=== PATIENT | female | born 1995 | race Caucasian/White ===

== ENCOUNTER 2025-07-12 19:25 | Emergency (ER) | payer MEDICARE, SELFPAY ==
--- NOTE | ~2025-07-12 | CT_ITS ---
CT abdomen pelvis wo con INDICATION:periumbilical abdominal pain . COMPARISON: None. TECHNIQUE: Axial 2.5 mm images of the abdomen were obtained without IV or oral contrast. Diagnostic sensitivity is limited due to lack of IV contrast. FINDINGS: The lung bases are clear. The liver parenchyma is unremarkable. No intrahepatic mass or ductal dilatation is evident. The patient has had a cholecystectomy. The pancreas and spleen are normal in appearance. The adrenal glands are symmetric in size. The kidneys are unremarkable. No intrarenal stones are noted. There is no hydronephrosis. Evaluation of the stomach and bowel loops are limited due to lack of oral contrast. There are no bowel obstruction or acute appendicitis. The bladder and rectum are normal. No free intraperitoneal fluid or air is evident. There is no significant retroperitoneal lymphadenopathy. The aorta, visceral vessels and renal arteries demonstrate normal caliber. The lower thoracic and lumbar vertebrae are in normal alignment. IMPRESSION: No acute abnormality is noted in the abdomen and pelvis. All CT scans at this facility are performed using low dose modulation techniques as appropriate to perform exam including the following: automated exposure control; use of iterative reconstruction technique; adjustment of the mA and/or kV according to patient size (this includes techniques or standardized protocols for targeted exams where dose is matched to indication/reason for exam). Reviewed, dictated and finalized at location S[facility] IMPRESSION: No acute abnormality is noted in the abdomen and pelvis. All CT scans at this facility are performed using low dose modulation techniqu es as appropriate to perform exam including the following: automated exposure c ontrol; use of iterative reconstruction technique; adjustment of the mA and/or kV according to patient size (this includes techniques or standardized protocol s for targeted exams where dose is matched to indication/reason for exam).
[2025-07-12 19:30] VITALS: BP 143/72; PULSE 86; RESP 16; TEMP 36.4; O2SAT 94
--- NOTE | 2025-07-12 19:43 | ECG_ITS ---
Test Date: 2025-07-12 19:48:48 Measurements Intervals [place] Rate: 85 P: 23 MN: 136 QRS: 46 QRSD: 88 T: 31 QT: 344 QTc: 410 Interpretive Statements SINUS RHYTHM NORMAL ECG No previous ECG available for comparison Electronically Signed On 07-12-2025 20:54:18 GENERAL CLAIMS AGENT by Miguel Velasquez D.O.
--- NOTE | 2025-07-12 19:43 | PC.NURSE ---
Pt. states she is not currently having cp, but has had intermittent CP since Friday.
[2025-07-12 21:49] VITALS: PULSE 79; RESP 21; O2SAT 100
[2025-07-12 22:07] VITALS: PULSE 73; RESP 14; O2SAT 100
[2025-07-12 22:15] VITALS: PULSE 76; RESP 21
[2025-07-12] MEDS: ONDANSETRON INJ 4 MG/2 ML VIAL IV PUSH (22:35)
[2025-07-12 22:39] LABS: Hematocrit 39.5 % (37.0-47.0); Hemoglobin 13.4 g/dL (12.0-15.0); Immature Granulocyte Percent A 0.3 % (0-0.5); Lymphocytes Absolute Auto 4.07 K/mm3 (0.9-3.2); Mean Corpuscular HGB Conc 33.9 g/dl (32-36); Mean Corpuscular Hemoglobin 30.8 pg (26-34); Mean Corpuscular Volume 90.8 fl (80-100); Nucleated Red Blood Cells Absolute Auto 0.000 K/mm3 (0.0-0.012); Nucleated Red Blood Cells Perc 0.0 % (0.0-0.2); Platelet Count Result 268 k/mm3 (150-375); Red Blood Count 4.35 M/mm3 (4.2-5.4); White Blood Count 11.8 K/mm3 (4.5-10.0)
[2025-07-12 22:54] LABS: Alanine Aminotransferase 22 U/L (6-35); Albumin Level 4.3 g/dL (3.5-5.1); Alkaline Phosphatase 77 U/L (38-126); Anion Gap 9 mmol/L (4-12); Aspartate Amino Transferase 29 U/L (14-36); Bilirubin,Total 0.5 mg/dL (0.2-1.3); Blood Urea Nitrogen 18 mg/dL (7-17); Calcium 9.2 mg/dL (8.4-10.2); Carbon Dioxide 17 mmol/L (22-30); Chloride 112 mmol/L (98-107); Estimated CRCL calculation 119 ml/min; Estimated Glomerular Filt Rate > 60; Glucose 89 mg/dL (65-110); Lipase 188 U/L (23-300); Potassium 4.6 mmol/L (3.4-5.0); Sodium 138 mmol/L (137-145); Total Protein 7.6 g/dL (6.3-8.2)
--- NOTE | 2025-07-12 22:54 | ED.ABDPAIN ---
HPI - Abdominal Pain General Chief Complaint: Abdominal Pain Stated Complaint: ovarian pain, abd pain, freq syncopial episodes Time Seen by Provider: 07/12/25 21:16 History of Present Illness HPI narrative: 30-year-old female presenting with concerns for periumbilical abdominal pain ongoing since November. Other symptoms include intermittent vomiting for the last 2 months reporting she cannot keep anything down. She states the abdominal pain has gotten worse within the last week. Last bowel movement was today and was normal. Denies diarrhea, fevers/chills, chest pain/shortness of breath. She reports she is currently on antibiotics for a UTI. Related Data Allergies Allergy/AdvReac Type Severity Reaction Status Date / Time fentanyl Allergy Severe Anaphylaxis Verified 07/12/25 19:42 oxycodone Allergy Severe Anaphylaxis Verified 07/12/25 19:42 Gadolinium-Containing Allergy Intermediate Dyspnea / Verified 07/12/25 19:42 Contrast Medi SOB Iodinated Contrast Media Allergy Intermediate Dyspnea / Verified 07/12/25 19:42 SOB ondansetron (From Zofran) Allergy Intermediate Hives Verified 07/12/25 19:42 Sulfa (Sulfonamide Allergy Unknown Unknown Verified 07/12/25 19:42 Antibiotics) ciprofloxacin (From Cipro) AdvReac Intermediate Confusion Verified 07/12/25 19:42 gabapentin AdvReac Intermediate Chest Pain Verified 07/12/25 19:42 metoclopramide (From Reglan) AdvReac Intermediate Agitated Verified 07/12/25 19:42 prochlorperazine (From AdvReac Intermediate Agitated Verified 07/12/25 19:42 Compazine) topiramate (From Topamax) AdvReac Intermediate Chest Pain Verified 07/12/25 19:42 droperidol AdvReac Mild Drowsy Verified 07/12/25 19:42 Review of Systems Review of Systems: All systems reviewed & are unremarkable except as noted in HPI and below Exam Narrative: GENERAL: No acute distress. HEAD: Normocephalic, atraumatic. EYES: PERRLA and EOMI. ENT: Nares clear, no rhinorrhea or epistaxis. Mucous membranes moist. Oropharynx without tonsillar hypertrophy exudate or other lesions. Bilateral TMs pearly darnell non-bulging NECK: Supple. No adenopathy or masses. No carotid bruits or JVD CHEST: Clear to auscultation. No respiratory distress. No wheezes rales or rhonchi HEART: Regular rate and rhythm. No murmur heard. Normal peripheral pulses. ABDOMEN: Soft, nondistended, normal active bowel sounds. Mild periumbilical TTP. EXTREMITIES: Normal range of motion. No edema. SKIN: Warm, dry, no rash. NEURO: No focal deficits. Alert and oriented x3. PSYCH: Normal mood and affect Course Vital Signs Vital signs: Vital Signs Temperature 97.6 F 07/12/25 19:30 Pulse Rate 86 07/12/25 19:30 Respiratory Rate 16 07/12/25 19:30 Blood Pressure 143/72 H 07/12/25 19:30 Pulse Oximetry 94 07/12/25 19:30 Oxygen Delivery Room Air 07/12/25 19:30 Temperature 97.6 F 07/12/25 19:30 Pulse Rate 86 07/12/25 19:30 Respiratory Rate 16 07/12/25 19:30 Blood Pressure 143/72 H 07/12/25 19:30 Pulse Oximetry 94 07/12/25 19:30 Oxygen Delivery Room Air 07/12/25 19:30 MDM MDM Narrative Medical decision making narrative: 30-year-old female presenting with concerns for periumbilical abdominal pain ongoing since November. Other symptoms include intermittent vomiting for the last 2 months reporting she cannot keep anything down. She states the abdominal pain has gotten worse within the last week. Last bowel movement was today and was normal. Denies diarrhea, fevers/chills, chest pain/shortness of breath. She reports she is currently on antibiotics for a UTI. She states that she has gone to multiple providers for help with no identification of a clear etiology for her symptoms. Upon my initial assessment patient appears nontoxic with stable vitals including no fevers. EKG and labs are without significant high risk changes. Patient's abdomen is soft without significant pain or signs of surgical abdomen on serial exams. Lab and CT evaluations are reviewed and patient is felt to be a reasonable candidate for outpatient management. Patient was instructed as to limitations of CT and laboratory evaluation and encouraged to follow with PCP for further evaluation. Given reasons to return to the ED. Differential Diagnosis Differential Diagnosis: Differential diagnostic considerations for acute abdominal pain include surgical abdominal etiology, ischemic bowel, inflammatory bowel disease, gastritis, PUD, gastroenteritis, cardiac etiology, appendicitis, diverticulitis, bowel obstruction, kidney stone, pyelonephritis, abdominal aortic aneurysm, pancreatitis, constipation, endometriosis. Lab Data MDM Lab Attestation statement: I personally reviewed the patient's lab results. 07/12/25 22:34 07/12/25 22:34 Labs: Lab Results 07/12/25 Range/Units 22:34 WBC 11.8 H (4.5-10.0) K/mm3 RBC 4.35 (4.2-5.4) M/mm3 Hgb 13.4 (12.0-15.0) g/dL Hct 39.5 (37.0-47.0) % MCV 90.8 (80-100) fl MCH 30.8 (26-34) pg MCHC 33.9 (32-36) g/dl RDW 13.6 (11.5-14.5) % Plt Count 268 (150-375) k/mm3 MPV 9.3 (7.4-10.4) fl Immature Gran % (Auto) 0.3 (0-0.5) % Neut % (Auto) 55.3 (45.5-73.1) % Lymph % (Auto) 34.4 (18.3-44.2) % [place] % (Auto) 7.5 (2.6-8.5) % Eos % (Auto) 1.9 (0-4.4) % Baso % (Auto) 0.6 (0.2-1.2) % Lymph # (Auto) 4.07 H (0.9-3.2) K/mm3 [place] # (Auto) 0.9 H (0.1-0.6) K/mm3 Eos # (Auto) 0.2 (0-0.3) K/mm3 Baso # (Auto) 0.1 (0.0-0.1) K/mm3 Abs Immat Gran (auto) 0.04 H (0.00-0.031) K/mm3 Absolute Neuts (auto) 6.5 (1.3-6.7) K/mm3 Absolute Nucleated RBC 0.000 (0.0-0.012) K/mm3 Nucleated RBC % 0.0 (0.0-0.2) % Sodium 138 (137-145) mmol/L Potassium 4.6 (3.4-5.0) mmol/L Chloride 112 H (98-107) mmol/L Carbon Dioxide 17 L (22-30) mmol/L Anion Gap 9 (4-12) mmol/L BUN 18 H (7-17) mg/dL Creatinine 0.70 (0.7-1.0) mg/dL Estim Creat Clear Calc 119 ml/min Estimated GFR > 60 (59 - ) Glucose 89 (65-110) mg/dL Calcium 9.2 (8.4-10.2) mg/dL Total Bilirubin 0.5 (0.2-1.3) mg/dL AST 29 (14-36) U/L ALT 22 (6-35) U/L Alkaline Phosphatase 77 (38-126) U/L Total Protein 7.6 (6.3-8.2) g/dL Albumin 4.3 (3.5-5.1) g/dL Lipase 188 (23-300) U/L Imaging Data Attestation: I personally reviewed and interpreted this imaging study as follows: Radiologist's impression: ITS Impressions Abdomen/Pelvis CT 07/12/25 22:59 IMPRESSION: No acute abnormality is noted in the abdomen and pelvis. All CT scans at this facility are performed using low dose modulation techniques as appropriate to perform exam including the following: automated exposure control; use of iterative reconstruction technique; adjustment of the mA and/or kV according to patient size (this includes techniques or standardized protocols for targeted exams where dose is matched to indication/reason for exam). Discharge Plan Discharge Clinical Impression: Abdominal pain Patient Disposition: Home Condition: Stable Instructions: Abdominal Pain (ED) Additional Instructions: Return to the ER if you experience fever, abdominal pain with nausea and vomiting, you are unable to keep down liquids or solids, blood in the stool, pain or burning with urination, blood in the urine or any other symptoms that are concerning to you. Small frequent meals. [place] diet. Hydrate with Gatorade and water. Follow up with primary care doctor Patient Language: Occitan Follow-up/Referrals: PHYSICIAN,RN GASTROENTEROLOGY [Primary Care Provider, Internal Medicine]
[2025-07-12 23:01] VITALS: BP 135/80; PULSE 82; RESP 20; TEMP 36.9; O2SAT 100
== END 2025-07-12 23:25 | disposition home or self-care (01) ==
DX: R10.33 Periumbilical pain (principal)
CPT/HCPCS: 36415; 74176; 80053; 83690; 85025; 93005; 96374; 96375; 99284; J1200; J2405